=== PATIENT | male | born 1955 | race Two or more races ===

== ENCOUNTER 2024-11-02 23:28 | Inpatient (IN) | payer MEDICARE, OTHER ==
[~2024-11-02] VITALS: Ht 167.6 cm; Wt 75.3 kg
[2024-11-02 23:30] VITALS: BP 139/82; TEMP 97.8; O2SAT 100
[2024-11-03] MEDS ORDERED: TEMAZEPAM 7.5 MG CAPSULE PO PRN ×2 (00:15)
[2024-11-03] MEDS ORDERED: ACETAMINOPHEN 325 MG TABLET PO PRN (00:15)
[2024-11-03] MEDS ORDERED: MAGNESIUM HYDROXIDE 30 ML LIQUID UDC PO PRN (00:15)
[2024-11-03] MEDS ORDERED: MAG HYDROX/AL HYDROX/SIMETH 30 ML LIQUID UDC PO PRN (00:15)
[2024-11-03] MEDS ORDERED: LORAZEPAM 1 MG TABLET PO PRN (00:15)
[2024-11-03] MEDS ORDERED: CARB1TAB21 PO (04:16)
[2024-11-03] MEDS ORDERED: CHOL100034 PO (04:16)
[2024-11-03] MEDS ORDERED: TAMS-3 PO (04:16)
[2024-11-03] MEDS ORDERED: ENOX40DI SQ (04:16)
[2024-11-03] MEDS ORDERED: DOCU100T2 PO (04:16)
[2024-11-03] MEDS ORDERED: FAMO-132 PO (04:16)
[2024-11-03] MEDS ORDERED: DIVA-78 PO (04:16)
[2024-11-03] MEDS ORDERED: FERR325T24 PO (04:16)
[2024-11-03 07:37] VITALS: BP 102/55; TEMP 97.2; O2SAT 98
[2024-11-03] MEDS ORDERED: CHOLECALCIFEROL 1,000 UNIT TABLET PO SCH (09:00)
[2024-11-03] MEDS ORDERED: DIVALPROEX 500 MG TABLET.DR PO SCH (09:00)
[2024-11-03] MEDS ORDERED: Medication Not On Formulary EA (Docusate Sodium 1 TAB) PO SCH (09:00)
[2024-11-03] MEDS ORDERED: Medication Not On Formulary EA (Cholecalciferol (Vitamin D3) (Vitamin D3) 1 TAB) PO SCH (09:00)
[2024-11-03] MEDS ORDERED: ENOXAPARIN SODIUM 60 MG/0.6 ML DISP.SYRIN SQ SCH (09:00)
[2024-11-03] MEDS: NICOTINE 21 MG/24HR PATCH TD SCH (09:00)
[2024-11-03] MEDS ORDERED: DOCUSATE SODIUM 100 MG CAPSULE PO SCH (09:00)
[2024-11-03] MEDS ORDERED: FERROUS SULFATE 325 MG TABEC PO SCH (09:00)
[2024-11-03] MEDS ORDERED: CARBIDOPA/LEVODOPA 25-100MG TABLET PO SCH (09:00)
[2024-11-03] MEDS ORDERED: FAMOTIDINE 20 MG TABLET PO SCH (09:00)
[2024-11-03] MEDS: DOCUSATE SODIUM 100 MG CAPSULE PO SCH (10:40)
[2024-11-03] MEDS: CARBIDOPA/LEVODOPA 25-100MG TABLET PO SCH (10:40)
[2024-11-03] MEDS: FAMOTIDINE 20 MG TABLET PO SCH (10:40)
[2024-11-03] MEDS: CEphaleXIN 500 MG CAPSULE PO SCH (10:40)
[2024-11-03] MEDS: CHOLECALCIFEROL 1,000 UNIT TABLET PO SCH (10:40)
[2024-11-03] MEDS ORDERED: DIVA125C5 PO (10:50)
[2024-11-03] MEDS ORDERED: ACET325T53 PO (10:53)
[2024-11-03 16:00] VITALS: BP 135/60; TEMP 97.6; O2SAT 97
[2024-11-03] MEDS: FERROUS SULFATE 325 MG TABEC PO SCH (17:32)
[2024-11-03] MEDS: risperiDONE 0.5 MG TABLET PO SCH (17:33)
[2024-11-03] MEDS: DIVALPROEX 125 MG TABLET.DR PO SCH (17:33)
[2024-11-03 20:07] VITALS: BP 126/68; TEMP 97.3; O2SAT 98
[2024-11-03] MEDS ORDERED: TAMSULOSIN HCL 0.4 MG CAP.SR.24H PO SCH (21:00)
[2024-11-03] MEDS ORDERED: ENOXAPARIN SODIUM 40 MG/0.4 ML DISP.SYRIN SQ SCH (21:00)
[2024-11-03] MEDS: TAMSULOSIN HCL 0.4 MG CAP.SR.24H PO SCH (21:04)
[2024-11-03] MEDS: ENOXAPARIN SODIUM 60 MG/0.6 ML DISP.SYRIN SQ SCH (21:27)
[2024-11-04 07:31] VITALS: BP 120/68; TEMP 98; O2SAT 98
[2024-11-04 16:36] VITALS: BP 104/59; TEMP 98; O2SAT 100
[2024-11-04 20:00] VITALS: BP 122/79; TEMP 98.4; O2SAT 100
[2024-11-04] MEDS ORDERED: risperiDONE 0.5 MG TABLET PO SCH (21:00)
[2024-11-04] MEDS: risperiDONE 0.25 MG TABLET PO SCH (21:25)
[2024-11-05 08:08] VITALS: BP 93/59; TEMP 98.4; O2SAT 97
[2024-11-05 09:15] LABS: BASOPHILS % (AUTO) 0.3 % (0.0-2.0); EOSINOPHILS # (AUTO) 0.1 K/uL (0.0-0.7); EOSINOPHILS % (AUTO) 0.7 % (0.0-7.0); HEMATOCRIT 27.9 % (36.7-47.1); HEMOGLOBIN 9.4 g/dL (12.5-16.3); LYMPHOCYTES # (AUTO) 1.4 K/uL (0.8-4.8); MEAN CORPUSCULAR HGB CONC 34 g/dL (32.5-36.3); MEAN CORPUSCULAR VOLUME 82.7 fL (73.0-96.2); MONOCYTES # (AUTO) 1.1 K/uL (0.1-1.30); MONOCYTES % (AUTO) 10.1 % (0.0-11.0); NEUTROPHILS # (AUTO) 8.1 K/uL (1.8-8.9); NEUTROPHILS % (AUTO) 75.9 % (38.5-71.5); PLATELET COUNT (AUTO) 321 K/uL (152-348); RED BLOOD CELL COUNT(AUTO) 3.38 MIL/uL (4.06-5.63); RED CELL DISTRIBUTION WIDTH 16.7 % (12.1-16.2); WHITE BLOOD COUNT (AUTO) 10.7 K/uL (3.6-10.2)
[2024-11-05 09:40] LABS: DIFFERENTIAL COMMENT 1
[2024-11-05 16:20] VITALS: BP 131/85; TEMP 98.1; O2SAT 98
[2024-11-05 20:00] VITALS: BP 155/90; TEMP 98.5; O2SAT 98
[2024-11-05] MEDS: QUETIAPINE FUMARATE 25 MG TABLET PO SCH (20:22)
[2024-11-06 07:49] VITALS: BP 98/58; TEMP 98.2; O2SAT 99
[2024-11-06] MEDS: LORAZEPAM 1 MG TABLET PO PRN (13:19)
[2024-11-06] MEDS: DIVALPROEX 500 MG TABLET.DR PO SCH (14:16)
[2024-11-06 15:17] VITALS: BP 109/64; TEMP 98; O2SAT 99
[2024-11-06 20:00] VITALS: BP 100/59; TEMP 98.9; O2SAT 98
[2024-11-07 07:45] VITALS: BP 90/56; TEMP 98; O2SAT 98
[2024-11-07 15:57] VITALS: BP 113/56; TEMP 98; O2SAT 98
[2024-11-07 19:48] VITALS: BP 110/62; TEMP 98.3; O2SAT 99
[2024-11-08 08:12] VITALS: BP 138/75; TEMP 98.4; O2SAT 97
[2024-11-08 16:41] VITALS: BP 96/54; TEMP 98; O2SAT 99
[2024-11-08 20:47] VITALS: BP 119/55; TEMP 98; O2SAT 100
[2024-11-09 08:10] VITALS: BP 118/63; TEMP 98.5; O2SAT 98
[2024-11-09 08:34] LABS: BASOPHILS % (AUTO) 0.6 % (0.0-2.0); EOSINOPHILS # (AUTO) 0.1 K/uL (0.0-0.7); HEMATOCRIT 25.5 % (36.7-47.1); HEMOGLOBIN 8.5 g/dL (12.5-16.3); LYMPHOCYTES # (AUTO) 1.5 K/uL (0.8-4.8); LYMPHOCYTES % (AUTO) 27.7 % (20.5-51.5); MEAN CORPUSCULAR HEMOGLOBIN 27.9 uug (23.8-33.4); MEAN CORPUSCULAR HGB CONC 33 g/dL (32.5-36.3); MEAN CORPUSCULAR VOLUME 83.4 fL (73.0-96.2); MONOCYTES # (AUTO) 0.4 K/uL (0.1-1.30); MONOCYTES % (AUTO) 7.8 % (0.0-11.0); NEUTROPHILS # (AUTO) 3.4 K/uL (1.8-8.9); NEUTROPHILS % (AUTO) 61.9 % (38.5-71.5); PLATELET COUNT (AUTO) 233 K/uL (152-348); RED BLOOD CELL COUNT(AUTO) 3.06 MIL/uL (4.06-5.63); RED CELL DISTRIBUTION WIDTH 16.6 % (12.1-16.2); WHITE BLOOD COUNT (AUTO) 5.5 K/uL (3.6-10.2)
[2024-11-09 08:42] LABS: DIFFERENTIAL COMMENT 1
[2024-11-09 08:54] LABS: ALBUMIN 2.3 g/dL (3.4-5.0); BILIRUBIN,TOTAL 0.3 mg/dL (0.2-1.0); CALCIUM 8.5 mg/dL (8.5-10.1); CREATININE 1.1 mg/dL (0.6-1.3); POTASSIUM 4.7 mmol/L (3.5-5.1); TOTAL PROTEIN, SERUM 6.2 g/dL (6.4-8.2)
[2024-11-09 16:12] VITALS: BP 111/65; TEMP 98.1; O2SAT 97
[2024-11-09 19:59] VITALS: BP 95/56; TEMP 98.1; O2SAT 100
[2024-11-10 08:33] VITALS: BP 100/58; TEMP 98; O2SAT 99
[2024-11-10 15:46] VITALS: BP 106/52; TEMP 98; O2SAT 98
[2024-11-10 20:57] VITALS: BP 100/56; TEMP 98.2; O2SAT 100
[2024-11-11 08:17] VITALS: BP 113/77; TEMP 98.3; O2SAT 96
[2024-11-11 16:17] VITALS: BP 97/55; TEMP 98; O2SAT 100
[2024-11-11 19:35] VITALS: BP 111/64; TEMP 97.9; O2SAT 100
[2024-11-11] MEDS: QUETIAPINE FUMARATE 25 MG TABLET PO SCH (20:59)
[2024-11-12 08:12] VITALS: BP 106/51; TEMP 98.5; O2SAT 98
[2024-11-12 16:10] VITALS: BP 111/69; TEMP 98.7; O2SAT 96
[2024-11-12 16:28] VITALS: BP 111/69; TEMP 98.7; O2SAT 96
[2024-11-12 20:00] VITALS: BP 92/59; TEMP 98.1; O2SAT 97
[2024-11-13 08:10] VITALS: BP 86/33; TEMP 98.5; O2SAT 98
[2024-11-13 16:08] VITALS: BP 101/57; TEMP 98.1; O2SAT 97
[2024-11-13 19:57] VITALS: BP 106/61; TEMP 97.8; O2SAT 100
[2024-11-14 08:11] VITALS: BP 122/73; TEMP 98; O2SAT 100
== END 2024-11-14 17:00 | DRG 885 ==
LOC: GPS 23:28
PROVIDERS: ADMIT Psychiatry & Neurology Psychosomatic Medicine; ATTEND Nurse Practitioner Family
DX: F29 Unspecified psychosis not due to a substance or known physiological condition (principal); E44.0 Moderate protein-calorie malnutrition; N39.0 Urinary tract infection, site not specified; F39 Unspecified mood [affective] disorder; F25.0 Schizoaffective disorder, bipolar type; F17.210 Nicotine dependence, cigarettes, uncomplicated; G40.909 Epilepsy, unspecified, not intractable, without status epilepticus; G20.A1 Parkinson's disease without dyskinesia, without mention of fluctuations; D64.9 Anemia, unspecified; E88.09 Other disorders of plasma-protein metabolism, not elsewhere classified; N40.0 Benign prostatic hyperplasia without lower urinary tract symptoms; K21.9 Gastro-esophageal reflux disease without esophagitis; R79.89 Other specified abnormal findings of blood chemistry; Z62.810 Personal history of physical and sexual abuse in childhood; Z87.448 Personal history of other diseases of urinary system
CPT/HCPCS: 36415; 80164; 85025; J1650